=== PATIENT | female | born 1975 | race Caucasian/White ===

== ENCOUNTER 2021-11-19 16:39 | Emergency (ER) | payer BC ==
--- NOTE | 2021-11-19 17:41 | RAD REPORT ---
EXAM DESCRIPTION: CT - Head Brain Wo Cont - 11/19/2021 5:28 pm CLINICAL HISTORY: PAIN COMPARISON: No comparisons TECHNIQUE: All CT scans are performed using dose optimization technique as appropriate and may inclu de automated exposure control or mA/KV adjustment according to patient size. FINDINGS: No intracranial hemorrhage, hydrocephalus or extra-axial fluid collection.No areas of brai n edema or evidence of midline shift. Low lying cerebellar tonsils. This results in some crowding at the foramen magnum. The paranasal sinuses and mastoids are clear. The calvarium is intact. IMPRESSION: No acute intracranial abnormality. No skull fracture.
--- NOTE | 2021-11-19 17:45 | EDPHYS ---
Physician Documentation [facility] Name: Angie Mock Age: 46 yrs Sex: Female : 1975 Arrival Date: 11/19/2021 Time: 16:43 Bed 19 Private MD: ED Physician Allison Soria HPI: 11/19 17:44 This 46 yrs old Female presents to ER via Ambulatory with complaints of Fall Injury. kb 17:17 Details of fall: The patient fell from a height, off furniture. Onset: The kb symptoms/episode began/occurred just prior to arrival. Associated injuries: The patient sustained injury to the head, hematoma. Severity of symptoms: At their worst the symptoms were mild, moderate, in the emergency department the symptoms are unchanged. The patient has not experienced similar symptoms in the past. The patient has not recently seen a physician. Pt states she was standing on a chair and fell backwards hitting her head. States she is supposed to go on a trip and didn't want to drive without coming to get checked out. Denies loc. . 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 - Social history:: Smoking status: Patient denies any tobacco usage or history of. - Immunization history: Last tetanus immunization: - up to date. ROS: 17:17 Constitutional: Negative for fever, chills, and weight loss. kb 17:17 Neuro: Positive for headache. 17:17 All other systems are negative. Exam: 17:18 Constitutional: This is a well developed, well nourished patient who is awake, alert, kb and in no acute distress. ENT: Moist Mucous membranes Cardiovascular: Regular rate and rhythm with a normal S1 and S2. No gallops, murmurs, or rubs. No pulse deficits. Respiratory: Respirations even and unlabored. No increased work of breathing. Talking in full sentences MS/ Extremity: Pulses equal, no cyanosis. Neurovascular intact. Full, normal range of motion. Neuro: Awake and alert, GCS 15, oriented to person, place, time, and situation. Moves all extremities. Normal gait. Psych: Awake, alert, with orientation to person, place and time. Behavior, mood, and affect are within normal limits. 17:18 Head/face: Noted is no obvious of injury or deformity except hematoma, that is mild, of the right parietal area. 17:18 Skin: hematoma and redness to back of scalp. Vital Signs: 17:08 BP 140 / 92; Pulse 114; Resp 18; Temp 97.5(O); Pulse Ox 98% on R/A; Weight 81.65 kg; mayo Height 4 ft. 11 in. (149.86 cm); 17:08 Body Mass Index 36.36 (81.65 kg, 149.86 cm) mayo [place] Coma Score: 17:11 Eye Response: spontaneous(4). Verbal Response: oriented(5). Motor Response: obeys mayo commands(6). Total: 15. Trauma Score (Adult): 17:11 Eye Response: spontaneous(1); Verbal Response: oriented(1); Motor Response: obeys mayo commands(2); Systolic BP: > 89 mm Hg(4); Respiratory Rate: 10 to 29 per min(4); [place] Score: 15; Trauma Score: 12 MDM: 17:01 Patient medically screened. 17:17 Data reviewed: vital signs, nurses notes. Data interpreted: Pulse oximetry: on room air kb is 98 %. Interpretation: normal. 17:43 Counseling: I had a detailed discussion with the patient and/or guardian regarding: the kb historical points, exam findings, and any diagnostic results supporting the discharge/admit diagnosis, radiology results, the need for outpatient follow up, a family practitioner, to return to the emergency department if symptoms worsen or persist or if there are any questions or concerns that arise at home. 11/19 17:08 Order name: CT Head Brain wo Cont; Complete Time: 17:42 kb Administered Medications: No medications were administered Disposition Summary: 11/19/21 17:44 Discharge Ordered Location: Home Condition: Stable Diagnosis - Unspecified injury of head, initial encounter kb Followup: kb - With: Emergency Department - When: As needed - Reason: Worsening of condition Followup: kb - With: Private Physician - When: 2 - 3 days - Reason: Recheck today's complaints, Continuance of care, Re-evaluation by your physician Discharge Instructions: - Discharge Summary Sheet kb - Head Injury, Adult, [id number] kb Forms: - Medication Reconciliation Form kb - Thank You Letter kb - Antibiotic Education kb - Prescription Opioid Use kb Signatures: Dispatcher [employer] EDAllie Matias, LAND [employer]ASE INFORMATION CLERK-C ISSAC-Hien Marin RN RN mayo Corrections: (The following items were deleted from the chart) 17:15 17:10 Allergies: No Known Allergies; mayo mayo
--- NOTE | 2021-11-19 17:45 | ER ---
Nurse's Notes [facility] Name: Angie Mock Age: 46 yrs Sex: Female : 1975 Arrival Date: 11/19/2021 Time: 16:43 Bed 19 Private MD: Diagnosis: Unspecified injury of head, initial encounter Presentation: 11/19 17:08 Chief complaint: Patient states: pt fell and hit back of her head. pt denies loc and mayo blood thinners. Coronavirus screen: Vaccine status: Patient reports receiving the 2nd dose of the covid vaccine. Ebola Screen: Patient denies travel to an Ebola-affected area in the 21 days before illness onset. Initial Sepsis Screen: Does the patient meet any 2 criteria? No. Patient's initial sepsis screen is negative. Does the patient have a suspected source of infection? No. Patient's initial sepsis screen is negative. Risk Assessment: Do you want to hurt yourself or someone else? Patient reports no desire to harm self or others. Onset of symptoms was November 19, 2021. 17:08 Method Of Arrival: Ambulatory mayo 17:08 Acuity: MAHENDRA 4 mayo 17:12 Care prior to arrival: None. Mechanism of Injury: Fall tilt floors. Trauma event mayo details: Injury occurred: November 19, 2021. Triage Assessment: 17:10 General: Appears in no apparent distress. Behavior is calm, cooperative. Pain: mayo Complains of pain in right parietal area. 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 - Social history:: Smoking status: Patient denies any tobacco usage or history of. - Immunization history: Last tetanus immunization: - up to date. Screenin:11 Abuse screen: Denies threats or abuse. Denies injuries from another. Nutritional mayo screening: No deficits noted. Tuberculosis screening: No symptoms or risk factors identified. Fall Risk None identified. Primary Survey: 17:11 NO uncontrolled hemorrhage observed. A: The patient is alert. Airway: patent. mayo Breathing/Chest: Respiratory pattern: regular. Circulation: Cardiac rhythm: sinus rhythm. Disability Alert. Exposure/Environment: There is no evidence of uncontrolled external bleeding. Obvious injury(ies) are noted at this time: back right side of head. 17:13 Reassessment Airway Airway Patent Breathing/Chest Respiratory pattern Regular mayo Circulation Heart rhythm Sinus rhythm Disability Alert. Vital Signs: 17:08 BP 140 / 92; Pulse 114; Resp 18; Temp 97.5(O); Pulse Ox 98% on R/A; Weight 81.65 kg; mayo Height 4 ft. 11 in. (149.86 cm); 17:08 Body Mass Index 36.36 (81.65 kg, 149.86 cm) mayo [place] Coma Score: 17:11 Eye Response: spontaneous(4). Verbal Response: oriented(5). Motor Response: obeys mayo commands(6). Total: 15. Trauma Score (Adult): 17:11 Eye Response: spontaneous(1); Verbal Response: oriented(1); Motor Response: obeys mayo commands(2); Systolic BP: > 89 mm Hg(4); Respiratory Rate: 10 to 29 per min(4); Cesar Score: 15; Trauma Score: 12 ED Course: 16:43 Patient arrived in ED. mr 17:00 Allie Doshi [facility]NP-C [facility]. kb 17:00 Allison Soria MD is Attending Physician. kb 17:10 Triage completed. mayo 17:10 Arm band placed on. mayo 17:11 Patient has correct armband on for positive identification. Bed in low position. mayo 17:11 No provider procedures requiring assistance completed. mayo 17:11 Patient maintains SpO2 saturation greater than 95% on room air. mayo 17:13 Thermoregulation: warm blanket given to patient. mayo 17:28 CT Head Brain wo Cont In Process Unspecified. EDMS 18:06 Patient did not have IV access during this emergency room visit. mayo Administered Medications: No medications were administered Intake: 17:11 PO: 0ml; Total: 0ml. mayo Outcome: 17:44 Discharge ordered by MD. jerez 18:06 Discharged to home mayo 18:06 Condition: good 18:06 Discharge instructions given to patient. 18:06 Patient left the ED. mayo Signatures: Dispatcher [employer] EDAllie Matias, COMMERCIAL CARPET INSTALLERLandyC COMMERCIAL CARPET INSTALLER-Isa Lola Aguiar mr Brittney-Hien Mariano RN RN mayo Corrections: (The following items were deleted from the chart) 17:15 17:10 Allergies: No Known Allergies; mayo mayo
[2021-11-19 18:25] VITALS: BP 140/92; TEMP 97.5; O2SAT 98
== END 2021-11-19 18:06 | disposition home or self-care (01) ==
LOC: ER 16:39
DX: S00.03XA Contusion of scalp, initial encounter (principal); W07.XXXA Fall from chair, initial encounter; Z88.5 Allergy status to narcotic agent
CPT/HCPCS: 70450; 99284

== ENCOUNTER 2022-08-01 19:39 | Emergency (ER) | payer BC ==
[2022-08-01] MEDS ORDERED: FENTANYL CITR 100 MCG/2 ML ONE (20:09)
[2022-08-01] MEDS ORDERED: ONDANSETRON 4 MG/2 ML VIAL ONE (20:12)
[2022-08-01] MEDS ORDERED: NA CHLORIDE 0.9% 1,000 ML ONE (20:12)
--- NOTE | 2022-08-01 21:37 | EDPHYS ---
Physician Documentation [facility] Name: Angie Mock Age: 47 yrs Sex: Female : 1975 Arrival Date: 08/01/2022 Time: 19:42 Bed 25 Private MD: ED Physician Danii Heredia HPI: 08/01 20:15 This 47 yrs old Female presents to ER via Wheelchair with complaints of Fall Injury, cp Leg Injury. 20:15 Details of fall: The patient fell from an upright position, while walking, and struck a cp grass-covered surface. Onset: The symptoms/episode began/occurred just prior to arrival. Associated injuries: The patient sustained right lower leg and right ankle, decreased range of motion, painful injury, swelling. Severity of symptoms: in the emergency department the symptoms. Historical: - Allergies: 19:46 Codeine; ld1 - Immunization history:: Adult Immunizations up to date, Client reports receiving the 2nd dose of the Covid vaccine. - Social history:: Smoking status: Patient denies any tobacco usage or history of. Patient/guardian denies using alcohol. ROS: 20:20 Constitutional: Negative for body aches, chills, fever, poor PO intake. cp 20:20 Eyes: Negative for injury, pain, redness, and discharge. cp 20:20 Neck: Negative for pain with movement, pain at rest, stiffness. 20:20 Cardiovascular: Negative for chest pain, palpitations. 20:20 Respiratory: Negative for cough, shortness of breath, wheezing. 20:20 Abdomen/GI: Negative for abdominal pain, nausea, vomiting, and diarrhea. 20:20 Back: Negative for pain at rest, pain with movement. 20:20 MS/extremity: Positive for decreased range of motion, pain, swelling, tenderness, of the right lower leg and right ankle, Negative for paresthesias. 20:20 Neuro: Negative for altered mental status, headache, syncope, weakness. 20:20 All other systems are negative. Exam: 20:25 Constitutional: The patient appears in no acute distress, alert, awake, non-toxic, well cp developed, well nourished, uncomfortable. 20:25 Head/Face: Normocephalic, atraumatic. cp 20:25 Neck: ROM/movement: is normal, is supple, without pain, no range of motions limitations. 20:25 Chest/axilla: Inspection: normal. 20:25 Cardiovascular: Rate: tachycardic, Rhythm: regular. 20:25 Respiratory: the patient does not display signs of respiratory distress, Respirations: normal, no use of accessory muscles, no retractions, labored breathing, is not present, Breath sounds: are clear throughout, no decreased breath sounds, no stridor, no wheezing. 20:25 Abdomen/GI: Inspection: abdomen appears normal, Palpation: abdomen is soft and non-tender, in all quadrants. 20:25 Back: pain, is absent, ROM is normal. 20:25 Musculoskeletal/extremity: Extremities: grossly normal except: noted in the right ankle: pain, swelling, tenderness, ROM: limited passive range of motion due to pain, in the right ankle, Pulses: noted to be 2+ in the right dorsalis pedis artery, the right ankle Severe pain noted. no tenderness to palpation noted proximal right fibula and/or base of right fifth metatarsal. 20:25 Neuro: Orientation: to person, place \T\ time. Mentation: is normal, Sensation: no obvious gross deficits. Vital Signs: 19:57 BP 87 / 64; Pulse 100; Resp 22; Temp 97.3(TE); Pulse Ox 100% on R/A; Weight 79.38 kg; ld1 Height 4 ft. 11 in. (149.86 cm); Pain 10/10; 22:01 BP 109 / 77; Pulse 84; Resp 16; Pulse Ox 100% on R/A; tp1 19:57 Body Mass Index 35.35 (79.38 kg, 149.86 cm) ld1 Procedures: 22:00 Splinting: Splint applied to right ankle using Orthoglass splint, posterior long leg cp and stirrup type. applied by nurse. Examined by me, post splint application: neurovascular intact, Patient tolerated well. MDM: 19:58 Patient medically screened. cp 21:37 Data reviewed: vital signs, nurses notes, radiologic studies, plain films, and as a cp result, I will discharge patient. 21:37 Differential diagnosis: contusion, fracture, dislocation, Achilles tendon rupture, foot cp fracture. Test interpretation: by ED physician or midlevel provider: plain radiologic studies. Counseling: I had a detailed discussion with the patient and/or guardian regarding: the historical points, exam findings, and any diagnostic results supporting the discharge/admit diagnosis, radiology results, the need for outpatient follow up, for definitive care, a orthopedic surgeon, to return to the emergency department if symptoms worsen or persist or if there are any questions or concerns that arise at home. 08/01 20:04 Order name: Tib Fib Right XRAY cp 08/01 20:04 Order name: XRAY Foot RIGHT 3 View cp 08/01 20:04 Order name: IV; Complete Time: 20:37 cp 08/01 20:42 Order name: Crutches; Complete Time: 21:14 cp 08/01 20:42 Order name: Splint - Long Leg: Posterior w/ Stirrup; Complete Time: 21:14 cp Administered Medications: 20:36 Drug: fentaNYL (PF) 25 mcg Route: IVP; Site: left antecubital; kr3 20:36 Drug: Zofran (Ondansetron) 4 mg Route: IVP; Site: left antecubital; kr3 20:36 Drug: NS 0.9% 1000 ml Route: IV; Rate: 1 bolus; Site: left antecubital; kr3 22:00 Follow up: IV Status: Completed infusion; IV Intake: 500ml tp1 Disposition Summary: 08/01/22 21:37 Discharge Ordered Location: Home cp Problem: new cp Symptoms: have improved cp Condition: Stable cp Diagnosis - Right Distal Fibula and Posterior Tibia Fracture cp Followup: cp - With: Hakan Plummer MD - When: 2 - 3 days - Reason: right distal fibula and posterior tibia fracture Discharge Instructions: - Discharge Summary Sheet cp - Complex Ankle Fracture cp Forms: - Medication Reconciliation Form cp - Thank You Letter cp - Antibiotic Education cp - Prescription Opioid Use cp Prescriptions: - Ibuprofen 800 mg Oral Tablet - take 1 tablet by ORAL route every 8 hours As needed take with food; 30 tablet; cp Refills: 0, Product Selection Permitted - Tramadol 50 mg Oral Tablet - take 1 tablet by ORAL route every 8 hours as needed; 12 tablet; Refills: 0, cp Product Selection Permitted Signatures: Dispatcher [employer] EDMS Miguelito Lobato PA PA cp Joseline Meyers RN RN ld1 Jennifer Ocasio RN RN hal3 Elisabet Lee RN tp1 Corrections: (The following items were deleted from the chart) 08/02 20:41 20:41 Constitutional: Negative for cp cp 20:48 08/01 20:25 Musculoskeletal/extremity: Extremities: grossly normal except: noted in the cp right ankle: pain, swelling, tenderness, ROM: limited passive range of motion due to pain, in the right ankle, Pulses: noted to be 2+ in the right dorsalis pedis artery, the right ankle Severe pain noted. cp
--- NOTE | 2022-08-01 21:37 | ER ---
Nurse's Notes [facility] Name: Angie Mock Age: 47 yrs Sex: Female : 1975 Arrival Date: 08/01/2022 Time: 19:42 Bed 25 Private MD: Diagnosis: Right Distal Fibula and Posterior Tibia Fracture Presentation: 08/01 19:57 Chief complaint: Patient states: Fell in the grass this evening - did not hit head, not ld1 on blood thinners. C/O severe pain to right ankle/coles and nausea. "I heard it snap.". Coronavirus screen: At this time, the client does not indicate any symptoms associated with coronavirus-19. Ebola Screen: No symptoms or risks identified at this time. Initial Sepsis Screen: Does the patient meet any 2 criteria? No. Patient's initial sepsis screen is negative. Does the patient have a suspected source of infection? No. Patient's initial sepsis screen is negative. Risk Assessment: Do you want to hurt yourself or someone else? Patient reports no desire to harm self or others. Onset of symptoms was August 01, 2022 at 19:58. 19:57 Method Of Arrival: Wheelchair ld1 19:57 Acuity: MAHENDRA 3 ld1 Triage Assessment: 19:57 General: Appears in no apparent distress. uncomfortable, Behavior is cooperative, ld1 anxious. Pain: Complains of pain in right coles and anterior aspect of right ankle. EENT: No signs and/or symptoms were reported regarding the EENT system. Neuro: Level of Consciousness is awake, alert, obeys commands, Oriented to person, place, time, situation, Appropriate for age. Cardiovascular: Capillary refill < 3 seconds Patient's skin is warm and dry. Respiratory: Airway is patent Respiratory effort is even, unlabored. GI: Abdomen is round non-distended. : No signs and/or symptoms were reported regarding the genitourinary system. Derm: No signs and/or symptoms reported regarding the dermatologic system. Musculoskeletal: No signs and/or symptoms reported regarding the musculoskeletal system. Historical: - Allergies: 19:46 Codeine; ld1 - Immunization history:: Adult Immunizations up to date, Client reports receiving the 2nd dose of the Covid vaccine. - Social history:: Smoking status: Patient denies any tobacco usage or history of. Patient/guardian denies using alcohol. Assessment: 22:00 General: Appears in no apparent distress. comfortable, Behavior is calm, cooperative. tp1 Neuro: Level of Consciousness is awake, alert, obeys commands. Cardiovascular: Patient's skin is warm and dry. Respiratory: Airway is patent Respiratory effort is even, unlabored. Vital Signs: 19:57 BP 87 / 64; Pulse 100; Resp 22; Temp 97.3(TE); Pulse Ox 100% on R/A; Weight 79.38 kg; ld1 Height 4 ft. 11 in. (149.86 cm); Pain 10/10; 22:01 BP 109 / 77; Pulse 84; Resp 16; Pulse Ox 100% on R/A; tp1 19:57 Body Mass Index 35.35 (79.38 kg, 149.86 cm) ld1 ED Course: 19:42 Patient arrived in ED. bp1 19:47 Miguelito Lobato PA is PHCP. cp 19:47 Danii Heredia MD is Attending Physician. cp 19:57 Arm band placed on right wrist. ld1 19:58 Triage completed. ld1 20:03 Jennifer Ocasio, MORENO is Primary Nurse. kr3 21:12 Tib Fib Right XRAY In Process Unspecified. EDMS 21:12 XRAY Foot RIGHT 3 View In Process Unspecified. EDMS 21:14 Crutch training done. Archie wrap to right leg and anterior aspect of right ankle and kr3 right coles Orthoglass splint: Posterior long leg splint applied on right leg. stirrup splint applied on right leg. 21:36 Hakan Plummer MD is Referral Physician. cp 22:01 Inserted saline lock: 22 gauge in left antecubital area, using aseptic technique. tp1 ,using aseptic technique. inserted by jeniffer coleman rn. 22:01 No provider procedures requiring assistance completed. IV discontinued, intact, tp1 bleeding controlled, No redness/swelling at site. Pressure dressing applied. Administered Medications: 20:36 Drug: fentaNYL (PF) 25 mcg Route: IVP; Site: left antecubital; kr3 20:36 Drug: Zofran (Ondansetron) 4 mg Route: IVP; Site: left antecubital; kr3 20:36 Drug: NS 0.9% 1000 ml Route: IV; Rate: 1 bolus; Site: left antecubital; kr3 22:00 Follow up: IV Status: Completed infusion; IV Intake: 500ml tp1 Medication: 22:02 VIS not applicable for this client. tp1 Intake: 22:00 IV: 500ml; Total: 500ml. tp1 Outcome: 21:37 Discharge ordered by MD. cp 22:02 Discharged to home via wheelchair, with family. tp1 22:02 Condition: good 22:02 Discharge instructions given to patient, Instructed on discharge instructions, follow up and referral plans. medication usage, Demonstrated understanding of instructions, follow-up care, medications, Prescriptions given X 2. 22:02 Patient left the ED. tp1 Signatures: Dispatcher [employer] EDMS Miguelito Lobato PA PA cp [place], Brittany bp1 Dibbern, Lauren, RN RN ld1 Elisabet Lee RN RN tp1 Jennifer Ocasio RN RN kr3
--- NOTE | 2022-08-01 22:02 | RAD REPORT ---
EXAM DESCRIPTION: RAD - Foot Right 3 View - 08/01/2022 9:10 pm CLINICAL HISTORY: PAIN COMPARISON: No comparisons FINDINGS: No fracture, dislocation or periosteal reaction of the foot. Distal tibia finding is separ ately reported. No air or foreign body in the soft tissues. Small plantar spur present IMPRESSION: No acute right foot finding. Distal tibia finding separately reported.
--- NOTE | 2022-08-01 22:03 | RAD REPORT ---
EXAM DESCRIPTION: RAD - Tib Fib Right - 08/01/2022 9:10 pm CLINICAL HISTORY: PAIN, fall COMPARISON: No comparisons FINDINGS: Oblique fracture is present through the distal fibula. No significant distraction or angul ation. Posterior malleolus fracture of the tibia is present also without significant distraction or a ngulation. Medial malleolus appears be intact. There is no dislocation or periosteal reaction noted. No pathologic bone process. Small plantar spur present. No foreign body or other soft tissue abnormality. IMPRESSION: Fracture of the distal fibula and posterior distal tibia as detailed.
[2022-08-01 22:57] VITALS: TEMP 97.3; O2SAT 100
[2022-08-01 23:03] VITALS: BP 109/77
== END 2022-08-01 22:02 | disposition home or self-care (01) ==
LOC: ER 19:39
PROC: 2W3LX1Z Immobilization of Right Lower Extremity using Splint (ICD-10-PCS; principal; 2022-08-01)
DX: S82.401A Unspecified fracture of shaft of right fibula, initial encounter for closed fracture (principal); S82.201A Unspecified fracture of shaft of right tibia, initial encounter for closed fracture; Z88.5 Allergy status to narcotic agent
CPT/HCPCS: 96361; 73630; 73590; 96375; 96374; 99284; 29505; J3010; J7030; J2405

== ENCOUNTER 2022-08-04 01:23 | Emergency (ER) | payer BC ==
--- NOTE | 2022-08-04 01:44 | EDPHYS ---
Physician Documentation [facility] Name: Angie Mock Age: 47 yrs Sex: Female : 1975 Arrival Date: 08/04/2022 Time: 01:27 Bed 20 Private MD: ED Physician Danii Heredia HPI: 08/04 01:40 This 47 yrs old Female presents to ER via Unassigned with complaints of Foot Pain. sp3 01:40 47-year-old female with no significant past medical history presents with right foot sp3 pain secondary to a compression dressing being on too tight secondary to having an ankle fracture recently seen by orthopedics. Patient has no loss of sensation and no pain on passive toe flexion however she states that her extremity feels cold and is in pain. No secondary injury or further injury since her initial incident.. Historical: - Allergies: 01:49 Codeine; tw5 - Immunization history:: Flu vaccine status is unknown. - Social history:: Smoking status: Patient denies any tobacco usage or history of. ROS: 01:41 Constitutional: Negative for fever, chills, and weight loss, Eyes: Negative for injury, sp3 pain, redness, and discharge, Neck: Negative for injury, pain, and swelling, Cardiovascular: Negative for chest pain, palpitations, and edema, Respiratory: Negative for shortness of breath, cough, wheezing, and pleuritic chest pain, Abdomen/GI: Negative for abdominal pain, nausea, vomiting, diarrhea, and constipation, Back: Negative for injury and pain, : Negative for injury, bleeding, discharge, and swelling, Skin: Negative for injury, rash, and discoloration. 01:41 All other systems are negative. Exam: 01:41 Constitutional: This is a well developed, well nourished patient who is awake, alert, sp3 and in no acute distress. Neck: Trachea midline, no thyromegaly or masses palpated, and no cervical lymphadenopathy. Supple, full range of motion without nuchal rigidity, or vertebral point tenderness. No Meningismus. Chest/axilla: Normal chest wall appearance and motion. Nontender with no deformity. No lesions are appreciated. Cardiovascular: Regular rate and rhythm with a normal S1 and S2. No gallops, murmurs, or rubs. Normal PMI, no JVD. No pulse deficits. Respiratory: Lungs have equal breath sounds bilaterally, clear to auscultation and percussion. No rales, rhonchi or wheezes noted. No increased work of breathing, no retractions or nasal flaring. Back: No spinal tenderness. No costovertebral tenderness. Full range of motion. Skin: Warm, dry with normal turgor. Normal color with no rashes, no lesions, and no evidence of cellulitis. MS/ Extremity: Pulses equal, no cyanosis. Neurovascular intact. Full, normal range of motion. Neuro: Awake and alert, GCS 15, oriented to person, place, time, and situation. Cranial nerves II-XII grossly intact. Motor strength 5/5 in all extremities. Sensory grossly intact. Cerebellar exam normal. Normal gait. 01:41 Musculoskeletal/extremity: She has cool lower extremity but decent distal perfusion. Cap refill is less than 3 seconds on the skin but cannot be assessed on nailbed secondary to nail telugu. Patient has the ability to move her toes. No pain on passive toe flexion. No calf swelling inguinal pain and/or lymphadenopathy.. Vital Signs: 01:48 BP 138 / 98; Pulse 71; Resp 18; Temp 98.4; Pulse Ox 100% ; Weight 72.57 kg; Height 5 tw5 ft. 4 in. (162.56 cm); Pain 8/10; 01:48 Body Mass Index 27.46 (72.57 kg, 162.56 cm) tw5 MDM: 01:40 Patient medically screened. sp3 01:42 Data reviewed: vital signs, nurses notes. ED course: Clinically I have ruled out sp3 infection, DVT, PE, compartment syndrome or any other critical findings at this time. We will remove current compression dressing and place a new compression dressing and appropriate tightness level. Neurovascular status will be verified and patient will be discharged back home to orthopedic follow-up and continued boot usage as needed. Patient is okay with the plan and has no further questions and no further intervention is indicated.. Administered Medications: No medications were administered Disposition Summary: 08/04/22 01:44 Discharge Ordered Location: Home sp3 Condition: Stable sp3 Diagnosis - Right foot pain, compression dressing problem (now replaced and resolved) sp3 Followup: sp3 - With: Private Physician - When: Upon discharge from the Emergency Department - Reason: Continuance of care Discharge Instructions: - Discharge Summary Sheet sp3 - Ankle Fracture sp3 Forms: - Medication Reconciliation Form sp3 - Thank You Letter sp3 - Antibiotic Education sp3 - Prescription Opioid Use sp3 Signatures: Danii Heredia MD MD sp3 Elisabet Murphy tw5
--- NOTE | 2022-08-04 01:50 | ER ---
Nurse's Notes [facility] Name: Angie Mock Age: 47 yrs Sex: Female : 1975 Arrival Date: 08/04/2022 Time: 01:27 Bed 20 Private MD: Diagnosis: Right foot pain, compression dressing problem (now replaced and resolved) Presentation: 08/04 01:48 Chief complaint: Patient states: "I just feel like my foot dressing is too tight. I saw tw5 the orthopedic surgeon today and they wrapped it.". Coronavirus screen: Vaccine status:. Ebola Screen: Patient negative for fever greater than or equal to 101.5 degrees Fahrenheit, and additional compatible Ebola Virus Disease symptoms Patient denies exposure to infectious person. Patient denies travel to an Ebola-affected area in the 21 days before illness onset. Initial Sepsis Screen: Does the patient meet any 2 criteria? No. Patient's initial sepsis screen is negative. Does the patient have a suspected source of infection? No. Patient's initial sepsis screen is negative. Risk Assessment: Do you want to hurt yourself or someone else? Patient reports no desire to harm self or others. Onset of symptoms was August 04, 2022. 01:48 Method Of Arrival: Wheelchair tw5 01:48 Acuity: MAHENDRA 5 tw5 Triage Assessment: 01:49 General: Appears in no apparent distress. Behavior is calm, cooperative. Pain: Pain tw5 currently is 8 out of 10 on a pain scale. Historical: - Allergies: 01:49 Codeine; tw5 - Immunization history:: Flu vaccine status is unknown. - Social history:: Smoking status: Patient denies any tobacco usage or history of. Screenin:49 Abuse screen: Denies threats or abuse. Denies injuries from another. Nutritional tw5 screening: No deficits noted. Tuberculosis screening: Fall Risk None identified. Assessment: 01:49 Neuro: No deficits noted. Respiratory: No deficits noted. Derm: No deficits noted. tw5 Musculoskeletal: Capillary refill < 3 seconds, is brisk, toes. Vital Signs: 01:48 BP 138 / 98; Pulse 71; Resp 18; Temp 98.4; Pulse Ox 100% ; Weight 72.57 kg; Height 5 tw5 ft. 4 in. (162.56 cm); Pain 8/10; 01:48 Body Mass Index 27.46 (72.57 kg, 162.56 cm) tw5 ED Course: 01:27 Patient arrived in ED. ja2 01:40 Danii Heredia MD is Attending Physician. sp3 01:48 Elisabet Murphy is Primary Nurse. tw5 01:49 Triage completed. tw5 01:49 Arm band placed on. tw5 01:49 Patient has correct armband on for positive identification. tw5 01:49 No provider procedures requiring assistance completed. Patient did not have IV access tw5 during this emergency room visit. Administered Medications: No medications were administered Medication: :49 VIS not applicable for this client. Outcome: 01:44 Discharge ordered by . sp3 01:49 Discharged to home via wheelchair. 01:49 Condition: improved 01:49 Discharge instructions given to patient, Instructed on discharge instructions, follow up and referral plans. Demonstrated understanding of instructions, follow-up care. 01:50 Patient left the ED. tw5 Signatures: Danii Heredia MD MD sp3 Sarahi Dye Elisabet Medina tw5
[2022-08-04 01:54] VITALS: BP 138/98; TEMP 98.4; O2SAT 100
== END 2022-08-04 01:50 | disposition home or self-care (01) ==
LOC: ER 01:23
DX: M79.671 Pain in right foot (principal); Z88.6 Allergy status to analgesic agent; Z48.00 Encounter for change or removal of nonsurgical wound dressing
CPT/HCPCS: 99281